=== PATIENT | male | born 1980 | race Two or more races ===

== ENCOUNTER 2018-11-02 03:12 | Emergency (ER) | payer SELFPAY ==
[~2018-11-02] VITALS: Ht 160 cm; Wt 84.1 kg
--- NOTE | 2018-11-02 03:23 | NUR ---
assessment made. chart up for MD to see.
--- NOTE | 2018-11-02 03:34 | NUR ---
ERP at bedside.
--- NOTE | 2018-11-02 03:47 | NUR ---
patient to X ray.
--- NOTE | 2018-11-02 03:49 | NUR ---
back from X ray. awaiting result.
[2018-11-02 03:53] LABS: BASOPHILS # (AUTO) 0.04 x10^3/uL (0-0.1); BASOPHILS % (AUTO) 0 % (0-1); EOSINOPHILS # (AUTO) 0.29 x10^3/uL (0-0.4); EOSINOPHILS % (AUTO) 3 % (1-7); LYMPHOCYTES # (AUTO) 3.06 x10^3/uL (1-3.4); LYMPHOCYTES % (AUTO) 35 % (22-44); MD NO; MEAN CORPUSCULAR HEMOGLOBIN 29.9 pg (27.5-34.5); MEAN CORPUSCULAR HGB CONC 33.9 g/dL (33.2-36.2); MEAN CORPUSCULAR VOLUME 88.1 fL (81-97); MEAN PLATELET VOLUME 8.3 fL (7.4-10.4); MONOCYTES # (AUTO) 0.68 x10^3/uL (0.2-0.8); MONOCYTES % (AUTO) 8 % (2-9); NEUTROPHILS % (AUTO) 54 % (42-75); PLATELET COUNT 186 x10^3/uL (130-400)
[2018-11-02 04:00] LABS: ALANINE AMINOTRANSFERASE 28 U/L (12-78); ALBUMIN 3.7 g/dL (3.4-5.0); ANION GAP 7 mmol/L (5-15); CALCIUM 8.8 mg/dL (8.5-10.1); CHLORIDE 106 mmol/L (98-107); CREATININE 0.75 mg/dL (0.7-1.3)
[2018-11-02 04:05] LABS: ALKALINE PHOSPHATASE 69 U/L (45-117); BILIRUBIN,TOTAL 0.3 mg/dL (0.2-1.0); TOTAL PROTEIN 6.8 g/dL (6.4-8.2); TROPONIN I < 0.015 ng/mL (0.000-0.045)
--- NOTE | 2018-11-02 04:31 | NUR ---
ERP at bedside for re-evaluation.
--- NOTE | 2018-11-02 05:07 | NUR ---
patient discharged with instruction. verbalized understanding.
[2018-11-02 05:08] VITALS: BP 99/65
== END 2018-11-02 05:09 | disposition home or self-care (01) ==
LOC: ED 05:00
DX: R06.00 Dyspnea, unspecified (principal); Z87.891 Personal history of nicotine dependence
CPT/HCPCS: 36415; 71046; 80053; 83690; 84484; 85025; 93005; 99284